=== PATIENT | male | born 1940 | race Caucasian/White ===

== ENCOUNTER 2024-04-07 09:58 | Inpatient (IN) | payer MEDICARE, SELFPAY ==
[2024-04-07] VITALS (12 sets, daily range): BP systolic 114–158; BP diastolic 49–71; BMI 26.3; BMI 25.7
--- NOTE | 2024-04-07 06:52 | ED.GENMED ---
History of Present Illness
General
Chief Complaint: Fall
Source: patient and family (Daughter)
Time Seen by Provider: 04/07/24 06:36
History of Present Illness
History of Present Illness:
84-year-old male has had some ongoing urinary frequency urgency. Has been getting up in the middle of the night. Because of this agitation the gave him a dose of Ativan last night. This was her medication. Patient then got up to go to the
bathroom and either fell or passed out on the floor. Complaining of some mild headache and mild right shoulder pain. Does not think he passed out. No fever chills or infectious symptoms. No chest pain shortness of breath. No thinners.
Past History
Past History
ED Past Medical History: GERD, HTN and Hypercholesterolemia
ED Past Surgical History: Other (Vein stripping. Hernia.)
Review of Systems
Review of Systems
All Other Systems: Not applicable
Constitutional: Denies fever or chills
Respiratory: Reports no symptoms
Cardiac: Reports no symptoms
ABD/GI: Reports no symptoms
Phy Exam
Physical Exam
Physical Exam:
TRAUMA EXAM:
VITAL SIGNS: Vital signs reviewed, cooperative
DISTRESS: No active disease
EYES: Pupils reactive, no orbital trauma
NOSE: No deformity or epistaxis
FACE AND SCALP: No scalp or facial trauma, external canals no blood
NECK: Supple nontender
BACK: Back nontender, pelvis stable to compression
RESPIRATORY: No distress, breath sounds normal, no tender chest wall
CARDIAC: No murmur, pulses equal and strong
ABDOMEN: Soft nontender bowel sounds normal
SKIN: Skin intact no bleeding, color normal
EXTREMITIES: Very minimal tenderness to the right shoulder. No clavicle tenderness. No deformity. No humerus tenderness. Good distal pulses and color. Able to abduct.
NEUROLOGICAL: Alert, oriented, no motor deficits
PSYCH: Mood affect normal
Course
Orders/Labs/Results
Orders:
Orders
04/07/24 06:33
CT Head W/o Iv Contrast Urgent
Comment:
Reason For Exam: Fall possible head injury
Cardiac Monitoring- Treatment ONCE
IV Insert/Care/Rem.- Treatment PRN
CR Shoulder, Trauma - Right Urgent
Reason For Exam: Fall/shoulder pain
04/07/24 06:[address] Non Medication Order As Directed
Physician Order: post void residual
Above order entered?: Yes
04/07/24 06:38
Basic Metabolic Panel Urgent
Complete Blood Count/With Diff Urgent
04/07/24 08:12
Urinalysis Reflex To Culture Urgent
Date Specimen was Collected: 04/07/24
Time Specimen was Collected: 08:07
Urine Microscopic Reflex Cult Urgent
Urine Culture Urgent
TD Source: U
Specimen Description:
Date Specimen was Collected: 04/07/24
Time Specimen was Collected: 08:07
04/07/24 09:18
Cefepime HCl [Maxipime] 2,000 mg IV NOW STA
04/07/24 09:29
Admit/Transfer Patient As Directed
Co-Sign Provider:
Level of Care: Inpatient admission
Assign to:: Medical/Surgical
Physician / Group: Hospitalist
Diagnosis: Fall
Reason for Hospitalization: .
Expected length of stay greater than two midnights?: Yes
ELOS- Estimated Length of Stay in days: 3
I certify the patient meets the requirements for IP care: Yes
04/07/24 09:30
PRN Pain Medication Management As Directed
May give lesser potent ordered pain med per pt: Yes
preference::
Protocol:: Medication orders for pain may be administered in a
manner that supports deferring to patient preference
when the pt is:
- Requesting an ordered lesser potent pain medication.
Least to most potent pain medications are defined
as: acetaminophen < NSAID < tramadol < opioids
(morphine, oxycodone, hydromorphone).
- Requesting a lesser dose of the same medication IF
ORDERED.
- Requesting a less intrusive route of administration
if both routes are prescribed by the provider (PO <
IV).
04/07/24 10:35
Blood Culture Q30M
TD Source: Blood/Venous
Specimen Description:
04/07/24 10:36
Blood Culture Q30M
TD Source: Blood/Venous
Specimen Description:
Abnormal Lab Results
04/07/24 04/07/24
06:38 08:12
WBC 19.4 H 10^3/uL
(4.8-10.8)
RBC 3.80 L 10^6/uL
(4.70-6.10)
Hgb 11.6 L g/dL
(13.0-18.0)
Hct 33.5 L %
(39.0-52.0)
Abs Immat Gran (auto) 0.1 H 10^3/uL
(0-0.05)
Absolute Neuts (auto) 16.1 H 10^3/uL
(1.4-6.5)
Absolute Lymphs (auto) 0.7 L 10^3/uL
(1.2-3.4)
Absolute Monos (auto) 2.3 H 10^3/uL
(0.1-0.6)
Neutrophils % 83.1 H %
(42.2-75.2)
Lymphocytes % 3.8 L %
(20.5-51.1)
Monocytes % 11.9 H %
(1.7-9.3)
BUN 23 H mg/dl
(9-20)
Glucose 108 H mg/dl
(70-99)
Calcium 8.3 L mg/dl
(8.4-10.2)
Urine Ketones Trace A
(Negative)
Ur Occult Blood Reflex 2+ A
(Negative)
Leukocyte Esterase Rfl 2+ A
(Negative)
Urine WBC (Reflex) 60-70 A /HPF
(0-5)
Urine Bacteria (Reflex) Few A
(Negative)
04/07/24 06:38
04/07/24 06:38
Vital Signs
Initial and Last Documented VS:
Initial Vital Signs
Temp Pulse Resp BP Pulse Ox
97.7 F 74 16 116/51 100
04/07/24 05:00 04/07/24 05:00 04/07/24 05:00 04/07/24 05:00 04/07/24 05:00
Last Documented Vital Signs
Temp Pulse Resp BP Pulse Ox
97.7 F 93 16 132/62 99
04/07/24 05:00 04/07/24 12:00 04/07/24 05:00 04/07/24 12:00 04/07/24 12:00
MDM/Problems Addressed
Differential Diagnosis Includes:
Highly suspect the patient's primary issue of weakness/fall versus syncope was secondary to the Ativan. We will place him on the ekg monitor tech. Get labs. From a trauma standpoint low suspicion for anything serious but would be somewhat unknown
history as to what happened and complaining of some headache we will CT his head. He has no neck symptoms. No other signs of trauma. Very minimal right shoulder tenderness. Will x-ray the shoulder. He is describing ongoing very symptoms. Will
check renal function and urine postvoid residual.
*Radiology
Radiology exam reviewed: preliminary read by ED provider (Negative x-ray) and radiology read reviewed (Negative CT)
*Pulse Oximetry
Patient hypoxic: no
*Sample Prep Technician Interpretation
Rate: normal
Interpretation: normal
Heart Rate: 88
Rhythm: sinus
*Critical Care Note
Total Time (30-74mins, 75-104mins- exclusive of procedures): Not Applicable
Update Note
Update Note:
Patient with a high white count. Urine positive. Unsure what occurred last night although the benzodiazepine I am sure contributed. Warrants inpatient manage
ED Attending Note
-
Portions of this chart may have been created with voice recognition software.� Occasional wrong word or��sound alike� substitutions may have occurred due to the inherent limitations of voice recognition software.
Discharge Plan
Departure
Patient Disposition: Admit
Date of Disposition: 04/07/24
Time of Disposition: 09:20
Presentation/result/management discussed w/ accepting MD/DO: Hospitalist
Discharge Problem:
UTI/weak, Fall versus syncope, Benzodiazepine ingestion
Interventions
Interventions:
*Risk Screen - Suicide Last Done: 04/07/24 04:55
*General Assessment Last Done: 04/07/24 04:55
*Neglect/Abuse Screening Last Done: 04/07/24 04:55
ED- Fall Risk Assessment Last Done: 04/07/24 06:55
*ED COVID-19 Vaccine History Last Done: 04/07/24 04:55
ED-Musculoskeletal Assessment Last Done: 04/07/24 05:20
ED- Neurological Assessment Last Done: 04/07/24 05:20
ED-Skin Assessment Last Done: 04/07/24 05:20
[2024-04-07 07:01] LABS: % Basophils 0.6 % (0-2); % Eosinophils 0.2 % (0-6); % Immature Granulocytes 0.4 % (0-0.5); % Lymphocytes 3.8 % (20.5-51.1); % Monocytes 11.9 % (1.7-9.3); % Neutrophils 83.1 % (42.2-75.2); Absolute Basophils 0.1 10^3/uL (0-0.2); Absolute Immature Granulocytes 0.1 10^3/uL (0-0.05); Absolute Lymphocytes 0.7 10^3/uL (1.2-3.4); Absolute Monocytes 2.3 10^3/uL (0.1-0.6); Absolute Neutrophils 16.1 10^3/uL (1.4-6.5); Hematocrit 33.5 % (39.0-52.0); Hemoglobin 11.6 g/dL (13.0-18.0); Mean Corp Hgb Conc. 34.6 g/dL (33.0-37.0); Mean Corpuscular Hgb 30.5 pg (27.0-31.0); Mean Corpuscular Volume 88.2 fL (80.0-94.0); Mean Platelet Volume 10.3 fL (7.4-10.4); Nucleated Red Blood Cells % 0 % (-); Platelet Count 210 10^3/uL (130-400); Red Cell Dist. Width 12.8 % (11.5-14.5); White Blood Cell Count 19.4 10^3/uL (4.8-10.8)
[2024-04-07 07:20] LABS: Blood Urea Nitrogen 23 mg/dl (9-20); Calcium 8.3 mg/dl (8.4-10.2); Carbon Dioxide 27 mmol/L (22-30); Chloride 103 mmol/L (98-107); Estimated Creatinine Clearance 50 ml/min; Glucose 108 mg/dl (70-99); Potassium 3.9 mmol/L (3.5-5.1); Sodium 137 mmol/L (135-145); eGFR > 60.00
[2024-04-07 08:38] LABS: Urine Albumin Trace (Neg - Trace); Urine Bilirubin Negative (Negative); Urine Character Very Cloudy (Clear); Urine Color Yellow; Urine Glucose Negative (Negative); Urine Ketone Trace (Negative); Urine Leukocyte 2+ (Negative); Urine Nitrite Negative (Negative); Urine Occult Blood 2+ (Negative); Urine Specific Gravity 1.015 (<1.030); Urine Urobilinogen Negative (Neg - 1+)
[2024-04-07 08:46] LABS: Urine Bacteria Few (Negative); Urine Squamous Cell 0-2 /LPF (Few)
[2024-04-07 08:47] LABS: Urine Red Blood Cell 0-2 /HPF (0-2); Urine White Cell 60-70 /HPF (0-5)
--- NOTE | 2024-04-07 09:29 | HPS.HSE ---
Family Physician
-
Family Physician: Greg Escobar
Chief Complaint
-
Fall at home with urinary frequency
History of Present Illness
84 years old male presented with ongoing urinary frequency in last a few days. He was unable to sleep well last night and his gave him half a milligram dose of Ativan from her medication. Patient was drowsy and he fell to the ground. He did
not have a head trauma. He complained of mild headache. In the ER, head CAT scan showed no acute abnormality. His urine was cloudy with leukocytosis. Patient was diagnosed with urine tract infection.
Medical History
Past Medical History
Past Medical History: Reports Other (GERD, hypertension, hyperlipidemia, prostate disease, diabetes)
Past Surgical History: Reports Other (No recent major surgery)
Social History
Tobacco: Non-smoker
Alcohol: None
Drug: None
Personal:
Living: With Family
Employment: Retired
Family History
Family History: Not pertinent
Allergies / Home Medications
Allergies reflects when Allergies were last updated in [employer].
Home Medications with original date entered in [employer]
Allergy/Medication List:
Allergies
Allergy/AdvReac Type Severity Reaction Status Date / Time
metoprolol [From Toprol XL] AdvReac 'BP drops Verified 04/07/24 04:54
too low'
Home Medications
amlodipine 5 mg tablet (Norvasc) 5 mg PO DAILY 04/07/24
aspirin 81 mg tablet,delayed release 81 mg PO DAILY 04/07/24
glimepiride 2 mg tablet 2 mg PO BID 04/07/24
hydrochlorothiazide 25 mg tablet 25 mg PO DAILY 04/07/24
ibuprofen 400 mg tablet 400 mg PO DAILYPRN PRN mild pain 04/07/24
latanoprost 0.005 % eye drops 1 drp BOTH EYES HS 04/07/24
lisinopril 20 mg tablet 20 mg PO QPM 04/07/24
omeprazole 40 mg capsule,delayed release 40 mg PO DAILY 04/07/24
simvastatin 10 mg tablet (Zocor) 10 mg PO HS 04/07/24
vitamins A,C,H-bmmd-nwhnnr 2,148 mcg-113 mg-45 mg-17.4 mg tablet (PreserVision AREDS) 1 tab PO BID 04/07/24
Review of Systems
-
History Source: Patient
A 12 point ROS was completed and negative except as noted: Yes
Constitutional: Denies Fever or Chills
EENT: Denies Sore Throat
Respiratory: Denies Cough
Cardiac: Denies Chest Pain
Abdomen/GI: Denies Abdominal Pain
: Reports Frequency
Musculoskeletal: Denies Joint Pain or Joint Swelling
Neurological: Denies Headache or Numbness
Endocrine: Denies Temp Intolerance
Hematologic/Lymphatic: Denies Bruising
Psych: Denies Panic Disorder
Physical Exam
Vital Signs
Vital Signs
Temp Pulse Resp BP Pulse Ox
97.7 F 89 16 136/51 99
04/07/24 05:00 04/07/24 09:22 04/07/24 05:00 04/07/24 09:22 04/07/24 09:12
Physical Exam
General: Comfortable and Appears Chronically Ill
HEENT: Moist mucous membranes and Atraumatic
Respiratory: Clear
Cardiac: S1/S2 and Regular Rhythm
GI: Soft, Non Tender and Non Distended
Rectal: No Maroon Stools
Genito-urinary: No costovertebral tender; No Bloody Urine
Musculoskeletal: No Clubbing, No Cyanosis and No Edema
Skin: Warm
Neuro: Oriented and Cranial Nerves Intact; No Slurred Speech
Psych: Calm and Intact Judgment/Insight; No Agitated
Laboratory Results
-
04/07/24 06:38
04/07/24 06:38
Impression/Plan
-
84 years old male presented with weakness and urgency associated with fall at home
#Urinary tract infection
History of chronic urinary frequency/urgency
Admit the patient to the house
Start the patient on IV antibiotic
Blood culture and urine cul
Renal ultrasound
Bladder scan protocol
Monitor temperature curve and white cell count
# History of fall
Reportedly, patient is independent at home and still drives. Will consult PT/OT. Head CT scan no acute findings
Patient denies confusion
#History of BPH, will continue Flomax that was given
By his a primary care doctor
#Hypertension, primary, continue lisinopril and home medication. Will monitor blood pressure.
#Diabetes, continue with diabetic diet. Add insulin sign scale and continue glimepiride
#GERD, continue PPI
# Patient is new to our system, will reach out to primary care doctor office to get medical records
#CODE STATUS, discussed with patient, patient is full code
Total time spent to see the patient, examine the patient, review data and lab results, discuss the treatment plan with patient, ER doctor, nursing staff around 75 minutes
--- NOTE | 2024-04-07 09:36 | PHANOTE ---
med rec note- patient spouse also gave him 1/2 of lorazepam on 04/06/24
[2024-04-07] MEDS: MAXIPIME 2000 MG IV (10:32)
[2024-04-07] MEDS: NOVOLOG FLEXPEN-MODERATE RESISTANCE SC (15:42)
[2024-04-07] MEDS: TYLENOL 1000 MG PO (16:11)
[2024-04-07] MEDS: Pyridium 100 MG PO (16:11)
[2024-04-07] MEDS: AMARYL 2 MG PO (16:11)
--- NOTE | 2024-04-07 16:31 | PTCARENOTE ---
Pt admitted to rm 336-2 from ED. Ambulated to bed using walker and stand by assist. Frequent urination continues, pt c/o pain/discomfort with urination. PVR 260. Temp 100.1. TT to hospitalist - ordered pyridium, straight cath x 1, tylenol for fever.
Straight cath for 275ml cloudy yellow urine, reported relief. Patient and daughter updated on POC. Verbalized understanding of all instructions. Oriented to room and call button explained. Pt Ox3, aware of surroundings. Bed alarm in place.
[2024-04-07 17:39] LABS: Glucose - Point of Care 260 mg/dl (70-99)
[2024-04-07] MEDS: ZESTRIL 20 MG PO (18:07)
[2024-04-07] MEDS: NOVOLOG FLEXPEN-MODERATE RESISTANCE 5 UNITS SC (18:08)
[2024-04-07] MEDS: STERILE WATER FOR INJECTION 10 ML IV (21:13)
[2024-04-07] MEDS: HEPARIN 5000 UNITS SC (21:13)
[2024-04-07] MEDS: MAXIPIME 1000 MG IV (21:13)
[2024-04-07 21:33] LABS: Glucose - Point of Care 121 mg/dl (70-99)
[2024-04-08 05:35] LABS: Hematocrit 32.5 % (39.0-52.0); Hemoglobin 11.2 g/dL (13.0-18.0); Mean Corp Hgb Conc. 34.5 g/dL (33.0-37.0); Mean Corpuscular Hgb 30.2 pg (27.0-31.0); Mean Corpuscular Volume 87.6 fL (80.0-94.0); Mean Platelet Volume 10.2 fL (7.4-10.4); Platelet Count 209 10^3/uL (130-400); Red Blood Cell Count 3.71 10^6/uL (4.70-6.10); Red Cell Dist. Width 12.8 % (11.5-14.5); White Blood Cell Count 25.4 10^3/uL (4.8-10.8)
[2024-04-08 06:00] LABS: Blood Urea Nitrogen 19 mg/dl (9-20); Calcium 8.2 mg/dl (8.4-10.2); Carbon Dioxide 28 mmol/L (22-30); Chloride 101 mmol/L (98-107); Estimated Creatinine Clearance 55 ml/min; Glucose 85 mg/dl (70-99); Potassium 3.6 mmol/L (3.5-5.1); Sodium 135 mmol/L (135-145); eGFR > 60.00
[2024-04-08 07:27] VITALS: BP 124/57
[2024-04-08 07:39] LABS: Glucose - Point of Care 79 mg/dl (70-99)
[2024-04-08] MEDS: NOVOLOG FLEXPEN-MODERATE RESISTANCE SC ×3 (07:41→16:39)
[2024-04-08] MEDS: AMARYL 2 MG PO ×2 (07:52→17:43)
[2024-04-08] MEDS: HEPARIN 5000 UNITS SC ×2 (07:52→20:10)
[2024-04-08] MEDS: ORETIC 25 MG PO (07:56)
[2024-04-08] MEDS: PROTONIX 40 MG PO (07:56)
[2024-04-08] MEDS: FLOMAX 0.4 MG PO (07:56)
[2024-04-08] MEDS: ASPIR LOW (ENTERIC COATED) 81 MG PO (07:56)
[2024-04-08] MEDS: TYLENOL 1000 MG PO ×2 (07:58→20:10)
[2024-04-08 08:20] LABS: Glycohemoglobin (HgbA1c) 6.7 % (4.0-5.6)
[2024-04-08 08:45] VITALS: BP 130/63; PULSE 82; O2SAT 95
--- NOTE | 2024-04-08 09:03 | W.PN.HOSP.TC ---
Today's Communication/Plan
-
Not improving
Will do CT Urogram
Babin and IVF for now
Increase dose of cefepime, consulted ID
Assessment / Plan
Assessment / Plan
Physical Exam
General: Comfortable and Appears Chronically Ill
HEENT: Moist mucous membranes and Atraumatic
Respiratory: Clear
Cardiac: S1/S2 and Regular Rhythm
GI: Soft, Non Tender and Non Distended
Rectal: No Maroon Stools
Genito-urinary: No costovertebral tender; No Bloody Urine
Musculoskeletal: No Clubbing, No Cyanosis and No Edema
Skin: Warm
Neuro: Oriented and Cranial Nerves Intact; No Slurred Speech
Psych: Calm and Intact Judgment/Insight; No Agitated
84 years old male presented with weakness and urgency associated with fall at home
#Urinary tract infection
He meets criteria of Sepsis that was POA with fever, leukocytosis, UTI and Tachycardia
History of chronic urinary frequency/urgency in last 6 months that got worse in last week
Bladder scan c/w around 270 cc urine unable to void, will do Babin and IVF to drain infected urine out since his temp and WBC not improving
Will do CT urogram with no contrast, Renal US showed no hydronephrosis
Follow with blood culture and urine cul
Monitor temperature curve and white cell count
Will increase Cefepime dose to 2 gm BID for now. No hx of previous UTI per family.
Consulted ID, appreciate input
# History of fall
Reportedly, patient is independent at home and still drives. Consulted PT/OT. Head CT scan no acute findings
Patient denies confusion
#History of urinary frequency , will continue Flomax that was given by his a primary care doctor
Eventual urology follow up. I talked to urologist self contained behavior unit teacher, recommended OP follow for now.
#Hypertension, primary, continue lisinopril and home medication. Will monitor blood pressure.
#Diabetes, continue with diabetic diet. Added insulin sign scale and continue glimepiride
#GERD, continue PPI
#CODE STATUS, discussed with patient, patient is full code
Total time spent to see the patient, examine the patient, review data and lab results, discuss the treatment plan with patient, consultants, daughter of pt, nursing staff around 63 minutes
Anticipated Discharge: > 48 hours
Subjective/Interval History
-
Date of Service: April 08, 2024
He feels dysuria
Mild fever this morning
No abd pain or flank pain
No chest pain
Objective Data
-
Labs:
Laboratory Results
04/08/24
05:10
WBC 25.4 H
Hgb 11.2 L
Hct 32.5 L
Plt Count 209
Sodium 135
Potassium 3.6
Chloride 101
Carbon Dioxide 28
BUN 19
Creatinine 1.0
Glucose 85
Calcium 8.2 L
Vital Signs:
Vital Signs
Temp Pulse Resp BP Pulse Ox
100.4 F H 83 16 124/57 92
04/08/24 07:27 04/08/24 07:56 04/08/24 07:27 04/08/24 07:56 04/08/24 07:27
I&O
04/07/24 04/08/24 04/09/24
06:59 06:59 06:59
Intake Total 600 / 600
Output Total 600 / 600
Balance 0 / 0
[2024-04-08 09:51] VITALS: BP 130/63; PULSE 82; O2SAT 95
[2024-04-08] MEDS: NSS 1000 IV ×2 (10:28→20:10)
[2024-04-08] MEDS: STERILE WATER FOR INJECTION 10 ML IV ×2 (10:33→22:47)
[2024-04-08] MEDS: FLUSH (NSS) 2 FLUSH IV (10:33)
[2024-04-08] MEDS: MAXIPIME 2000 MG IV ×2 (10:33→22:47)
[2024-04-08] MEDS: STERILE WATER FOR INJECTION IV (10:38)
[2024-04-08 11:23] LABS: Glucose - Point of Care 99 mg/dl (70-99)
--- NOTE | 2024-04-08 14:46 | CON.ID ---
Consultation
-
Date/Time Consultation Requested: 04/08/2024 0858
Date/Time Consultation Performed: 04/08/2024 1440
Requesting Provider: Dr. Ricardo
Performing Provider: Dr. Nance
Reason for Consultation: Leukocytosis; complicated urinary tract infection
Chief Complaint / Past History
History of Present Illness
Ilia Mckeon is an 84-year-old man being evaluated at the request of Dr. Ricardo in regards to leukocytosis and suspected urinary tract infection. History is obtained from chart review, along with patient interview. Additional history was obtained
from the patient's daughter who was present at the bedside.
The patient reports a history of urinary tract infection approximately 6 months ago. Since then he has been followed and managed by his PCP, but 2 nights ago he developed significant urgency but an inability to urinate. At least on one of the
trips to the bathroom he sustained a fall. He presented to the emergency room yesterday morning. Since then, he continued to have an inability to urinate and a Babin catheter was placed. Urinalysis revealed significant pyuria, and the patient has
been placed on empiric antibiotics.
Past History
Additional Past Medical History:
GERD
HTN
Dyslipidemia
DM type 2
Additional Past Surgical History:
Hernia repair
Allergy History:
metoprolol [From Toprol XL] Allergy (Verified 04/07/24 15:58)
'BP drops too low'
Medications Reviewed: Yes
Current Antibiotics:
Cefepime 2 g IV every 12 hours
Social History
Tobacco: Non-Smoker
Alcohol: None
Drug: None
Personal:
Living: With Family
Employment: Employed
Family History
Family History: Not Pertinent
Review of Systems
Vital Signs
Temp Pulse Resp BP Pulse Ox
100.4 F H 83 16 124/57 92
04/08/24 07:27 04/08/24 07:56 04/08/24 07:27 04/08/24 07:56 04/08/24 07:27
Physical Exam
Physical Exam
Constitutional: No Acute Distress, Comfortable and Non-toxic
Eyes: No Conjunctival Hemorrhage and Sclera Anicteric
Oral: No Thrush and No Ulcers
Cardiovascular: Regular Rate and S1/S2; Negative S3/S4
Pulmonary: Clear; Negative Wheezes, Rales or Rhonchi
Gastrointestinal: Soft, Non Tender, Non Distended, Normal Bowel Sounds and Other (Umbilical hernia present.)
Genito-Urinary: Babin and Clear Urine; Negative Turbid Urine
Extremities: Negative Edema, Cyanosis or Erythema
Neurological: Awake and Alert
Psychological: Calm
.
Lab / Diagnostic Study Results
04/08/24 05:10
04/08/24 05:10
Abs Immat Gran (auto) 0.1 10^3/uL (0-0.05) H 04/07/24 06:38
Absolute Neuts (auto) 16.1 10^3/uL (1.4-6.5) H 04/07/24 06:38
Absolute Lymphs (auto) 0.7 10^3/uL (1.2-3.4) L 04/07/24 06:38
Absolute Monos (auto) 2.3 10^3/uL (0.1-0.6) H 04/07/24 06:38
Absolute Basos (auto) 0.1 10^3/uL (0-0.2) 04/07/24 06:38
Immature Gran % 0.4 % (0-0.5) 04/07/24 06:38
Neutrophils % 83.1 % (42.2-75.2) H 04/07/24 06:38
Lymphocytes % 3.8 % (20.5-51.1) L 04/07/24 06:38
Monocytes % 11.9 % (1.7-9.3) H 04/07/24 06:38
Eosinophils % 0.2 % (0-6) 04/07/24 06:38
Basophils % 0.6 % (0-2) 04/07/24 06:38
Ur Squamous Epith Cells 0-2 /LPF (Few) 04/07/24 08:12
Microbiology Results
Micro:
04/07/24 10:35 Blood Culture - Preliminary
Blood/Venous No Growth in 24 hours- Final report to follow
04/07/24 10:36 Blood Culture - Preliminary
Blood/Venous No Growth in 24 hours- Final report to follow
04/07/24 08:12 Urine Culture - Preliminary
Urine Staphylococcus species
Imaging:
04/08/2024 CT abdomen/pelvis without contrast: No obstructing renal or ureteral calculi. No hydronephrosis or hydroureter. Cholelithiasis is noted. Urinary bladder is normal. No abnormal lymphadenopathy. Please see full dictation for additional
detail. Film personally viewed
04/07/2024 Renal ultrasound:Essentially unremarkable renal ultrasound, as detailed in body of dictation.
Assessment / Plan
Suspected complicated urinary tract infection
Leukocytosis
Urinary retention requiring Babin placement
GERD
HTN
Dyslipidemia
Recommendations:
Continue cefepime for today.
Urine cultures reveal staph species. Will begin empiric vancomycin pending further culture data.
Monitor white count & temperature curve.
--- NOTE | 2024-04-08 15:09 | CM ---
CM met with pt, adinar/Nadiya and aj Mechelle bedside
Pt resides with his spouse in a [place] community, [address] with 4 [address]
Pt has a 1st floor set up, spouse unable to provide care to patient
Pt has local family who are involved in his care
Pt is indep with ambulations, no ADs, does furniture surf at times
Denies financial insecurities
PCP- Greg Escobar
Rx- Cherrie Hamilton
VN recs by therapy
Referral to [facility] per pt request
Pt will need WW issued on dc
Discharge Disposition - home with [facility], will need WW issued on dc
[2024-04-08 15:17] VITALS: BP 115/53
--- NOTE | 2024-04-08 15:45 | VNURNOTE ---
Home health liaison met with patient, daughter and spouse to discuss VN services, visit scheduling/frequency, homebound status and pet policy. Patient understands home visits will be 1-2 times a week to assess and teach medical management.
Patient aware a visiting nurse will contact them for start of care within 1-2 days after discharge from . Patient and family do not feel patient needs homecare and would like to think about it. Patient would like to see if he is definitely going
home with a catheter first. VN brochure given to patient. Home health liaison to follow up
--- NOTE | 2024-04-08 16:15 | PHA.VAN.IN ---
Assessment
- Assessment
Renal Function: Appears similar to baseline
Maximum Temperature: 100.4
Minimum Temperature: 97.7
Concomitant Antimicrobials: CEFEPIME 2000MG Q12H
AUC Dosing Plan
- Dosing Variables
Dosing Weight (kg): 81.3
Dosing CrCl (ml/min): 55
Vd coefficient (L/kg): 0.7
- Empiric Dosing
Initial / Loading Dose: 2000mg
Maintenance Regimen: 1250mg Q24H
Estimated AUC (mcg*h/mL): 455
Estimated Peak (mcg*h/mL): 31.4
Estimated Trough (mcg/ml): 10.2
Estimated Half Life (H): 13.8
- Monitoring
No levels ordered at this time: Consider level in next few days
Pharmacokinetics Vancomycin I
- -
Patient Age: 84
Patient Sex: Male
Vancomycin Day #: 1
Indication: Genito-Urinary Tract
Requesting Provider: Basilia MORIN
Height / Weight:
Height 5 ft 10 in
Actual Weight 81.329 kg
Pertinent Past Medical History: DIABETES
- Vital Signs / Lab Results
Temp Pulse Resp BP Pulse Ox
98.9 F 80 18 115/53 96
04/08/24 15:17 04/08/24 15:17 04/08/24 15:17 04/08/24 15:17 04/08/24 15:17
Lab Results - Hematology
04/07/24 04/08/24
06:38 05:10
WBC 19.4 H 25.4 H
Lab Results - Chemistry
04/07/24 04/08/24
06:38 05:10
BUN 23 H 19
Creatinine 1.1 1.0
Estimated Creat Clear 50 55
Lab Results - Urine
04/07/24
08:12
Urine Nitrite (Reflex) Negative
Leukocyte Esterase Rfl 2+ A
Urine WBC (Reflex) 60-70 A
Ur Squamous Epith Cells 0-2
Urine Bacteria (Reflex) Few A
Microbiology Results
04/07/24 10:35 Blood Culture - Preliminary
Blood/Venous No Growth in 24 hours- Final report to follow
04/07/24 10:36 Blood Culture - Preliminary
Blood/Venous No Growth in 24 hours- Final report to follow
04/07/24 08:12 Urine Culture - Preliminary
Urine Staphylococcus species
[2024-04-08] MEDS: VANCOCIN 540 MG IV (16:22)
[2024-04-08 16:37] LABS: Glucose - Point of Care 149 mg/dl (70-99)
[2024-04-08] MEDS: ZESTRIL 20 MG PO (17:43)
[2024-04-08 19:00] VITALS: BP 131/60
[2024-04-08 21:16] LABS: Glucose - Point of Care 94 mg/dl (70-99)
[2024-04-08 23:00] VITALS: BP 118/51
[2024-04-09] MEDS: NSS 1000 IV ×2 (03:40→15:35)
[2024-04-09] MEDS: LMX 4 1 APPLIC TOPICAL (04:21)
[2024-04-09 05:42] LABS: % Basophils 0.6 % (0-2); % Eosinophils 0.6 % (0-6); % Immature Granulocytes 0.8 % (0-0.5); % Lymphocytes 5.1 % (20.5-51.1); % Monocytes 10.4 % (1.7-9.3); % Neutrophils 82.5 % (42.2-75.2); Absolute Basophils 0.2 10^3/uL (0-0.2); Absolute Eosinophils 0.1 10^3/uL (0-0.7); Absolute Immature Granulocytes 0.2 10^3/uL (0-0.05); Absolute Lymphocytes 1.2 10^3/uL (1.2-3.4); Absolute Monocytes 2.4 10^3/uL (0.1-0.6); Absolute Neutrophils 19.4 10^3/uL (1.4-6.5); Hemoglobin 11.9 g/dL (13.0-18.0); Mean Corpuscular Hgb 29.9 pg (27.0-31.0); Mean Corpuscular Volume 87.9 fL (80.0-94.0); Mean Platelet Volume 10.4 fL (7.4-10.4); Nucleated Red Blood Cells % 0 % (-); Platelet Count 269 10^3/uL (130-400); Red Blood Cell Count 3.98 10^6/uL (4.70-6.10); Red Cell Dist. Width 12.9 % (11.5-14.5); White Blood Cell Count 23.5 10^3/uL (4.8-10.8)
[2024-04-09] MEDS: VANCOCIN 275 MG IV (05:44)
[2024-04-09 06:04] LABS: Blood Urea Nitrogen 22 mg/dl (9-20); Calcium 7.9 mg/dl (8.4-10.2); Carbon Dioxide 22 mmol/L (22-30); Chloride 104 mmol/L (98-107); Estimated Creatinine Clearance 50 ml/min; Glucose 58 mg/dl (70-99); Potassium 3.2 mmol/L (3.5-5.1); Sodium 138 mmol/L (135-145); eGFR > 60.00
[2024-04-09] MEDS: KCL 40 MEQ PO (06:37)
[2024-04-09 07:55] VITALS: BP 168/72
[2024-04-09 08:35] LABS: Glucose - Point of Care 109 mg/dl (70-99)
[2024-04-09] MEDS: NOVOLOG FLEXPEN-MODERATE RESISTANCE SC ×2 (08:52→13:13)
[2024-04-09] MEDS: ORETIC 25 MG PO (08:53)
[2024-04-09] MEDS: ASPIR LOW (ENTERIC COATED) 81 MG PO (08:53)
[2024-04-09] MEDS: PROTONIX 40 MG PO (08:53)
[2024-04-09] MEDS: HEPARIN 5000 UNITS SC ×2 (08:53→20:41)
[2024-04-09] MEDS: AMARYL 2 MG PO ×2 (08:53→17:24)
[2024-04-09] MEDS: FLOMAX 0.4 MG PO (08:53)
--- NOTE | 2024-04-09 09:35 | PHA.VAN.FU ---
Vancomycin Assessment / Plan
- Assessment
Renal Function: Stable
WBC's are: Stable
In the past 24 hrs, patient has been: Afebrile
Concomitant Antimicrobials: Cefepime
- Dosing Plan
Continue: Vanc 1250mg IV q24
- Follow Up
Pharmacy will continue to follow.
Vancomycin Follow UP
- -
Patient Age: 84
Patient Sex: Male
Vancomycin Day #: 2
Indication: Genito-Urinary Tract
Requesting Provider: Basilia MORIN
Height / Weight:
Height 5 ft 10 in
Actual Weight 81.329 kg
Pertinent Past Medical History: DIABETES
- Vital Signs / Lab Results
Temp Pulse Resp BP Pulse Ox
97.8 F 80 14 168/72 96
04/09/24 07:55 04/09/24 08:53 04/09/24 07:55 04/09/24 08:53 04/09/24 07:55
Lab Results - Hematology
04/07/24 04/08/24 04/09/24
06:38 05:10 05:22
WBC 19.4 H 25.4 H 23.5 H
Lab Results - Chemistry
04/07/24 04/08/24 04/09/24
06:38 05:10 05:22
BUN 23 H 19 22 H
Creatinine 1.1 1.0 1.1
Estimated Creat Clear 50 55 50
Lab Results - Urine
04/07/24
08:12
Urine Nitrite (Reflex) Negative
Leukocyte Esterase Rfl 2+ A
Ur Squamous Epith Cells 0-2
Microbiology Results
04/07/24 10:35 Blood Culture - Preliminary
Blood/Venous No Growth in 24 hours- Final report to follow
04/07/24 10:36 Blood Culture - Preliminary
Blood/Venous No Growth in 24 hours- Final report to follow
04/07/24 08:12 Urine Culture - Preliminary
Urine Staphylococcus species
--- NOTE | 2024-04-09 09:43 | W.PN.HOSP.TC ---
Addendum entered and electronically signed by David Ricardo MD 04/09/24 11:34:
Addendum
Hypokalemia, replace
Original Note:
Today's Communication/Plan
-
c/w IV Abx
Voiding trial.
Assessment / Plan
Assessment / Plan
Physical Exam
General: Comfortable and Appears Chronically Ill
HEENT: Moist mucous membranes and Atraumatic
Respiratory: Clear
Cardiac: S1/S2 and Regular Rhythm
GI: Soft, Non Tender and Non Distended
Rectal: No Maroon Stools
Genito-urinary: No costovertebral tender; No Bloody Urine
Musculoskeletal: No Clubbing, No Cyanosis and No Edema
Skin: Warm
Neuro: Oriented and Cranial Nerves Intact; No Slurred Speech
Psych: Calm and Intact Judgment/Insight; No Agitated
84 years old male presented with weakness and urgency associated with fall at home
#Urinary tract infection
He met criteria of Sepsis that was POA with fever, leukocytosis, UTI and Tachycardia
He feels better
Good clinical response. No recurrent fever
History of chronic urinary frequency/urgency in last 6 months that got worse in last week
Bladder scan c/w around 270 cc urine unable to void, d/w urologist interrelated special education teacher, Babin and IVF to drain infected urine out since his temp and WBC not improving
CT urogram with no contrast showed no abscess/ stone/ hydronephrosis. Renal US showed no hydronephrosis
Negative blood culture
Urine culture showing staph.
Monitor temperature curve and white cell count
Cefepime dose to 2 gm BID for now, added vancomycin IV. No hx of previous UTI per family.
Consulted ID, appreciate input
# leukocytosis
WBC is lower but still at 23
Patient denies hx of blood disease. We do not have records.
# History of fall
Reportedly, patient is independent at home and still drives. Consulted PT/OT. Head CT scan no acute findings
Patient denies confusion
#History of urinary frequency , continue Flomax that was given by his a primary care doctor
Eventual urology follow up. I talked to urologist interrelated special education teacher, recommended OP follow for now.
#Hypertension, primary, continue lisinopril and home medication. Monitor blood pressure.
#Diabetes, continue with diabetic diet. Added insulin sign scale and continue glimepiride
#GERD, continue PPI
#CODE STATUS, discussed with patient, patient is full code
Total time spent to see the patient, examine the patient, review data and lab results, discuss the treatment plan with patient, consultants, daughter of pt, nursing staff around 63 minutes
Anticipated Discharge: 24 - 48 hours
Subjective/Interval History
-
Date of Service: April 09, 2024
He feels better
No chest pain
Urine catheter bothers him at times
No fever or chills.
Objective Data
-
Labs:
Laboratory Results
04/09/24
05:22
WBC 23.5 H
Hgb 11.9 L
Hct 35.0 L
Plt Count 269 D
Sodium 138
Potassium 3.2 L
Chloride 104
Carbon Dioxide 22
BUN 22 H
Creatinine 1.1
Glucose 58 L
Calcium 7.9 L
Vital Signs:
Vital Signs
Temp Pulse Resp BP Pulse Ox
97.8 F 80 14 168/72 96
04/09/24 07:55 04/09/24 08:53 04/09/24 07:55 04/09/24 08:53 04/09/24 07:55
I&O
04/08/24 04/09/24 04/10/24
06:59 06:59 06:59
Intake Total 600 / 600 480 / 480
Output Total 600 / 600 400 / 400
Balance 0 / 0 80 / 80
[2024-04-09] MEDS: STERILE WATER FOR INJECTION 10 ML IV ×2 (11:44→22:44)
[2024-04-09] MEDS: MAXIPIME 2000 MG IV ×2 (11:44→22:44)
[2024-04-09 11:54] LABS: Glucose - Point of Care 176 mg/dl (70-99)
[2024-04-09 15:30] VITALS: BP 131/59
[2024-04-09 17:21] LABS: Glucose - Point of Care 214 mg/dl (70-99)
[2024-04-09] MEDS: NOVOLOG FLEXPEN-MODERATE RESISTANCE 3 UNITS SC (17:23)
[2024-04-09] MEDS: ZESTRIL 20 MG PO (17:24)
[2024-04-09 19:15] VITALS: BP 123/54
[2024-04-09 22:50] LABS: Glucose - Point of Care 163 mg/dl (70-99)
[2024-04-09 23:10] VITALS: BP 105/40
[2024-04-10] MEDS: VANCOCIN 275 MG IV (06:22)
[2024-04-10 07:30] VITALS: BP 139/65
[2024-04-10 08:11] LABS: Glucose - Point of Care 62 mg/dl (70-99)
[2024-04-10 08:30] LABS: Glucose - Point of Care 71 mg/dl (70-99)
[2024-04-10] MEDS: AMARYL PO (09:11)
[2024-04-10] MEDS: NOVOLOG FLEXPEN-MODERATE RESISTANCE SC ×3 (09:11→18:02)
[2024-04-10] MEDS: HEPARIN 5000 UNITS SC ×2 (09:25→19:54)
[2024-04-10] MEDS: ASPIR LOW (ENTERIC COATED) 81 MG PO (09:26)
[2024-04-10] MEDS: ORETIC 25 MG PO (09:26)
[2024-04-10] MEDS: FLOMAX 0.4 MG PO (09:26)
[2024-04-10] MEDS: PROTONIX 40 MG PO (09:26)
[2024-04-10 09:27] LABS: Hematocrit 31.2 % (39.0-52.0); Hemoglobin 10.7 g/dL (13.0-18.0); Mean Corp Hgb Conc. 34.3 g/dL (33.0-37.0); Mean Corpuscular Hgb 30.3 pg (27.0-31.0); Mean Corpuscular Volume 88.4 fL (80.0-94.0); Mean Platelet Volume 10.9 fL (7.4-10.4); Platelet Count 276 10^3/uL (130-400); Red Blood Cell Count 3.53 10^6/uL (4.70-6.10); Red Cell Dist. Width 13.1 % (11.5-14.5); White Blood Cell Count 12.6 10^3/uL (4.8-10.8)
--- NOTE | 2024-04-10 09:59 | W.PN.HOSP.TC ---
Today's Communication/Plan
-
Voiding trial today
f/w ID recommendations
PT/OT
Goal is dc in am
Assessment / Plan
Assessment / Plan
Physical Exam
General: Comfortable and looks better overall
HEENT: Moist mucous membranes and Atraumatic
Respiratory: Clear
Cardiac: S1/S2 and Regular Rhythm
GI: Soft, Non Tender and Non Distended
Rectal: No Maroon Stools
Genito-urinary: No costovertebral tender; No Bloody Urine
Musculoskeletal: No Clubbing, No Cyanosis and No Edema
Skin: Warm
Neuro: Oriented and Cranial Nerves Intact; No Slurred Speech
Psych: Calm and Intact Judgment/Insight; No Agitated
84 years old male presented with weakness and urgency associated with fall at home
#Urinary tract infection
He met criteria of Sepsis that was POA with fever, leukocytosis, UTI and Tachycardia
He feels better
Good clinical response. No recurrent fever
History of chronic urinary frequency/urgency in last 6 months that got worse in last week
Bladder scan c/w around 270 cc urine unable to void, d/w urologist rehabilitation physician, Babin and IVF to drain infected urine out since his temp and WBC not improving
CT urogram with no contrast showed no abscess/ stone/ hydronephrosis. Renal US showed no hydronephrosis
Negative blood culture
Urine culture showing staph lugdunensis.
Monitored temperature curve and white cell count
Cefepime dose to 2 gm BID for now, added vancomycin IV. No hx of previous UTI per family.
Consulted ID, appreciate input
# leukocytosis
WBC is lower at 12 from peak at 25
Patient denies hx of blood disease. We do not have records.
# History of fall
Reportedly, patient is independent at home and still drives. Consulted PT/OT. Head CT scan no acute findings
Patient denies confusion
#History of urinary frequency , continue Flomax that was given by his a primary care doctor
Eventual urology follow up. I talked to urologist rehabilitation physician, recommended OP follow for now. Will do voiding trial
#Hypertension, primary, continue lisinopril and home medication. Monitor blood pressure.
#Diabetes, continue with diabetic diet. Added insulin sign scale and continue glimepiride
#GERD, continue PPI
#CODE STATUS, discussed with patient, patient is full code
Total time spent to see the patient, examine the patient, review data and lab results, discuss the treatment plan with patient, consultants, daughter of pt, nursing staff around 63 minutes
Anticipated Discharge: Within 24 hours
Subjective/Interval History
-
Date of Service: April 10, 2024
Doing well
Objective Data
-
Labs:
Laboratory Results
04/10/24 04/10/24
08:02 08:03
WBC 12.6 H
Hgb 10.7 L
Hct 31.2 L
Plt Count 276
Sodium Pending
Potassium Pending
Chloride Pending
Carbon Dioxide Pending
BUN Pending
Creatinine Pending
Glucose Pending
Calcium Pending
Vital Signs:
Vital Signs
Temp Pulse Resp BP Pulse Ox
98.9 F 71 16 139/65 96
04/10/24 07:30 04/10/24 07:30 04/10/24 07:30 04/10/24 07:30 04/10/24 07:30
I&O
04/09/24 04/10/24 04/11/24
06:59 06:59 06:59
Intake Total 480 / 480 1945 / 1945
Output Total 400 / 400 1400 / 1400
Balance 80 / 80 545 / 545
[2024-04-10 10:07] LABS: Blood Urea Nitrogen 20 mg/dl (9-20); Calcium 7.7 mg/dl (8.4-10.2); Carbon Dioxide 25 mmol/L (22-30); Chloride 105 mmol/L (98-107); Estimated Creatinine Clearance 50 ml/min; Glucose 54 mg/dl (70-99); Potassium 3.7 mmol/L (3.5-5.1); Sodium 138 mmol/L (135-145); eGFR > 60.00
--- NOTE | 2024-04-10 10:36 | PHA.VAN.FU ---
Vancomycin Assessment / Plan
- Assessment
Renal Function: Stable
WBC's are: Trending Down (23.5->12.6)
In the past 24 hrs, patient has been: Afebrile
Concomitant Antimicrobials: Cefepime 2gm q12h
- Dosing Plan
Continue: vancomycin 1250 mg q24h - first dose 04/09 0600 after 2g LD 04/08 162
- Monitoring Plan
Peak Level: 04/11 0900 - after 4th dose
Trough Level: 04/12 0530
- Follow Up
Pharmacy will continue to follow.
Vancomycin Follow UP
- -
Patient Age: 84
Patient Sex: Male
Vancomycin Day #: 3
Indication: Genito-Urinary Tract
Requesting Provider: Basilia MORIN
Height / Weight:
Height 5 ft 10 in
Actual Weight 81.329 kg
Pertinent Past Medical History: DIABETES
- Vital Signs / Lab Results
Temp Pulse Resp BP Pulse Ox
98.9 F 71 16 139/65 96
04/10/24 07:30 04/10/24 07:30 04/10/24 07:30 04/10/24 07:30 04/10/24 07:30
Lab Results - Hematology
04/08/24 04/09/24 04/10/24
05:10 05:22 08:03
WBC 25.4 H 23.5 H 12.6 H
Lab Results - Chemistry
04/08/24 04/09/24 04/10/24
05:10 05:22 08:02
BUN 19 22 H 20
Creatinine 1.0 1.1 1.1
Estimated Creat Clear 55 50 50
Microbiology Results
04/07/24 08:12 Urine Culture - Final
Urine Staphylococcus lugdunensis
04/07/24 10:36 Blood Culture - Preliminary
Blood/Venous No Growth in 48 hours- Final report to follow
04/07/24 10:35 Blood Culture - Preliminary
Blood/Venous No Growth in 48 hours- Final report to follow
[2024-04-10] MEDS: STERILE WATER FOR INJECTION 10 ML IV (11:50)
[2024-04-10] MEDS: MAXIPIME 2000 MG IV (11:50)
[2024-04-10 12:37] LABS: Glucose - Point of Care 106 mg/dl (70-99)
--- NOTE | 2024-04-10 14:16 | W.PN.ID1 ---
Date of Service
Date of Service: April 10, 2024
Today's Communication
Narrow to cefazolin
Assessment / Plan
Suspected complicated urinary tract infection
Leukocytosis
Urinary retention requiring Babin placement
GERD
HTN
Dyslipidemia
Recommendations:
Cultures with staph lugdunensis.
Narrow antibiotics to cefazolin 2 g IV every 8 hours.
If continued clinical improvement, can transition to oral cephalexin at discharge.
Would complete a total of 10 to 14 days of therapy.
����������������������������������������������������������
Chief Complaint
-: UTI
Subjective / Review of Systems
Review of Systems: No Fever and No Chills
Vital Signs / Physical Exam
Vital Signs
Vital Signs
Temp Pulse Resp BP Pulse Ox
98.9 F 71 16 139/65 96
04/10/24 07:30 04/10/24 07:30 04/10/24 07:30 04/10/24 07:30 04/10/24 07:30
Physical Exam
Constitutional: No Acute Distress, Comfortable and Non-toxic
Eyes: Sclera Anicteric
Cardiovascular: S1/S2; Negative S3/S4
Pulmonary: Non Labored
Gastrointestinal: Soft and Non Tender
Genito-Urinary: Negative Babin
Neurological: Awake and Alert
Psychological: Calm
Objective Data
Lab Data
Lab Results
04/10/24 08:03
04/10/24 08:02
Estimated Creat Clear 50 ml/min 04/10/24 08:02
Most recent labs reviewed.
Micro Results:
04/07/24 10:35 Blood Culture - Preliminary
Blood/Venous No Growth in 72 hours- Final report to follow
04/07/24 10:36 Blood Culture - Preliminary
Blood/Venous No Growth in 72 hours- Final report to follow
04/07/24 08:12 Urine Culture - Final
Urine Staphylococcus lugdunensis
Imaging:
04/08/2024 CT abdomen/pelvis without contrast: No obstructing renal or ureteral calculi. No hydronephrosis or hydroureter. Cholelithiasis is noted. Urinary bladder is normal. No abnormal lymphadenopathy. Please see full dictation for additional
detail. Film personally viewed
04/07/2024 Renal ultrasound:Essentially unremarkable renal ultrasound, as detailed in body of dictation.
[2024-04-10 15:45] VITALS: BP 148/68
[2024-04-10] MEDS: ANCEF 2.5 MG IV ×2 (16:58→23:36)
[2024-04-10] MEDS: ZESTRIL 20 MG PO (17:02)
[2024-04-10] MEDS: AMARYL 1 MG PO (17:02)
[2024-04-10 17:49] LABS: Glucose - Point of Care 112 mg/dl (70-99)
[2024-04-10 21:42] LABS: Glucose - Point of Care 112 mg/dl (70-99)
[2024-04-10 23:32] VITALS: BP 140/70
[2024-04-11 07:26] VITALS: BP 148/76
[2024-04-11 08:24] LABS: Glucose - Point of Care 93 mg/dl (70-99)
[2024-04-11] MEDS: PROTONIX 40 MG PO (08:50)
[2024-04-11] MEDS: ASPIR LOW (ENTERIC COATED) 81 MG PO (08:51)
[2024-04-11] MEDS: AMARYL 1 MG PO (08:51)
[2024-04-11] MEDS: HEPARIN 5000 UNITS SC (08:51)
[2024-04-11] MEDS: NOVOLOG FLEXPEN-MODERATE RESISTANCE SC (08:51)
[2024-04-11] MEDS: ANCEF 2.5 MG IV (08:51)
[2024-04-11] MEDS: FLOMAX 0.4 MG PO (08:51)
[2024-04-11] MEDS: ORETIC 25 MG PO (08:51)
[2024-04-11 09:41] LABS: Vancomycin Peak 12.6 ug/ml (18-26)
--- NOTE | 2024-04-11 09:42 | W.PN.URO.CBU ---
Today's Communication / Plan
-
home when ok [facility] hospitalist no more bladder scans no menard
Assessment / Plan
-
pt at risk for uti with or woithout menard will continue flomax asd finasteride and f/up bph eval at office
Diagnosis
-
Date of Service: April 11, 2024
-
Patient Diagnosis:bph incomopletee bladder emptying 200cc pvr with uti
Post Op Day:
Subjective
-
feeling better
Objective
-
Vital Signs
Temp Pulse Resp BP Pulse Ox
99.2 F 88 17 148/76 95
04/11/24 07:26 04/11/24 07:26 04/11/24 07:26 04/11/24 07:26 04/11/24 07:26
Intake and Output
04/10/24 04/11/24 04/12/24
06:59 06:59 06:59
Intake Total 1945 / 1945 720 / 720
Output Total 1400 / 1400 1825 / 1825
Balance 545 / 545 -1105 / -1105
Intake:
Oral fluids 1320 / 1320 720 / 720
IV fluids (Total) 625 / 625
Output:
Urine, Menard 1400 / 1400 400 / 400
Urine, Voided 1425 / 1425
Laboratory Results
04/10/24 08:02
Review of Systems
-
: Dysuria and Difficulty Voiding
Physical Exam
-
General - well developed, well nourished, no acute distress
Chest - clear bilaterally
Abdomen - soft, non-tender, positive bowel sounds, no CVAT, no incisional pain or distention
Genitalia - normal
Rectal - normal
Skin - warm & dry with no rash
Neuro - AOx3, no motor deficits
Extremities - no clubbing, no cyanosis, no edema
Care Review
Data Reviewed
Discussed with: Hospitalist and Family (daughter jaspal)
CT Scan: Image Pers Reviewed
[2024-04-11 09:59] LABS: Hematocrit 34.5 % (39.0-52.0); Hemoglobin 11.7 g/dL (13.0-18.0); Mean Corp Hgb Conc. 33.9 g/dL (33.0-37.0); Mean Corpuscular Volume 88.5 fL (80.0-94.0); Mean Platelet Volume 10.2 fL (7.4-10.4); Platelet Count 357 10^3/uL (130-400); White Blood Cell Count 12.3 10^3/uL (4.8-10.8)
[2024-04-11 12:03] LABS: Glucose - Point of Care 191 mg/dl (70-99)
--- NOTE | 2024-04-11 12:06 | VNURNOTE ---
Chart reviewed. Per 04/11 urology note, no menard, no more bladder scans. Per previous VN, family not interested in homecare unless pt needs menard at home. No referral placed.
--- NOTE | 2024-04-11 12:11 | W.PN.HOSP.TC ---
Today's Communication/Plan
-
discharge with home health
Assessment / Plan
Assessment / Plan
Physical Exam
General: Comfortable and looks better overall
HEENT: Moist mucous membranes and Atraumatic
Respiratory: Clear
Cardiac: S1/S2 and Regular Rhythm
GI: Soft, Non Tender and Non Distended
Rectal: No Maroon Stools
Genito-urinary: No costovertebral tender; No Bloody Urine, clear urine.
Musculoskeletal: No Clubbing, No Cyanosis and No Edema
Skin: Warm
Neuro: Oriented and Cranial Nerves Intact; No Slurred Speech
Psych: Calm and Intact Judgment/Insight; No Agitated
84 years old male presented with weakness and urgency associated with fall at home
#Urinary tract infection
He met criteria of Sepsis that was POA with fever, leukocytosis, UTI and Tachycardia
He feels better
Good clinical response. No recurrent fever
History of chronic urinary frequency/urgency in last 6 months that got worse in last week
Bladder scan c/w around 200-300 post void despite trial of Babin in hospital ( see below)
CT urogram with no contrast showed no abscess/ stone/ hydronephrosis. Renal US showed no hydronephrosis
Negative blood culture
Urine culture showing staph lugdunensis.
Monitored temperature curve and white cell count
started on Ancef, ok to do Keflex upon dc
Consulted ID, appreciate input
# leukocytosis
WBC is lower at 12 from peak at 25
Patient denies hx of blood disease.
# History of fall
Reportedly, patient is independent at home and still drives. Consulted PT/OT, ok for home health. Head CT scan no acute findings
Patient denies confusion
#History of urinary frequency , continue Flomax that was given by his a primary care doctor
pt and family wanted inpt urology evaluation, d/w Dr Vaughn, saw the pt, started on Finasteride with no Babin for now, f/u in office, keep Flomax
#Hypertension, primary, continue lisinopril and home medication. Monitor blood pressure.
#Diabetes, continue with diabetic diet. Added insulin sign scale and continue glimepiride. He was noted to have low blood sugar in the morning although he did not have symptoms. Glimepiride was reduced to 1 mg in the hospital but he was on
controlled diet. Patient was advised to hold all cut back glimepiride if noticed blood sugar less than 90 at home or he is having symptoms and to follow-up with his a primary care doctor, he verbalized understanding.
#GERD, continue PPI
#CODE STATUS, discussed with patient, patient is full code
Total discharge time spent to see the patient, examine the patient, review data and lab results, discuss the discharge plan with patient, daughter of pt, urologist, nursing staff around 67 minutes
Anticipated Discharge: Today
Subjective/Interval History
-
Date of Service: April 11, 2024
Feels better, seen earlier
wants to go home
would like to see urologist
Objective Data
-
Labs:
Laboratory Results
04/11/24
08:41
WBC 12.3 H
Hgb 11.7 L
Hct 34.5 L
Plt Count 357 D
Vital Signs:
Vital Signs
Temp Pulse Resp BP Pulse Ox
99.2 F 88 17 148/76 95
04/11/24 07:26 04/11/24 07:26 04/11/24 07:26 04/11/24 07:26 04/11/24 07:26
I&O
04/10/24 04/11/24 04/12/24
06:59 06:59 06:59
Intake Total 1945 / 1945 720 / 720
Output Total 1400 / 1400 1825 / 1825
Balance 545 / 545 -1105 / -1105
--- NOTE | 2024-04-11 12:15 | CM ---
Addendum entered by Connie Montenegro 04/11/24 15:44:
Plan: discharge to home today; provided a script for outpatient therapy; PT provided a rolling walker
Addendum entered by Connie Montenegro 04/11/24 13:28:
Patient not homebound. Home Health not an option
PT will reassess if outpatient PT would be beneficial and if he needs a Rolling Walker at discharge
Original Note:
OZZIE spoke with patient's daughter, Samantha, via phone to discuss father's discharge plan. Home Health offered again for VN and PT. Daughter is now agreeable. Referral sent and acknowledge via [employer] Text to [facility] liaison. Liaison will contact
patient's daughter
Plan: Discharge to home with home health services with [facility]; daughter will provide transport home
--- NOTE | 2024-04-11 12:35 | VNURNOTE ---
Addendum:
Rec'ed info from CM that daughter interested in VN.
Home Health Liaison spoke with patient's daughter Samantha. Discussed [facility] nurse/therapy, visits, schedule and homebound status. Per daughter patient plans on resuming driving and working from home. Per daughter pt goes out frequently including
errands and dinner. Explained insurance/ coverage related to homebound status. Patient does not appear to be homebound. Advised [facility] can be ordered by PCP if patient status changes and meets homebound criteria after DC. Daughter verbalized
understanding. CM Connie updated.
[2024-04-11] MEDS: NOVOLOG FLEXPEN-MODERATE RESISTANCE 1 UNITS SC (13:17)
[2024-04-11] MEDS: ANCEF 10 IV (13:17)
--- NOTE | 2024-04-11 13:53 | W.PN.ID1 ---
Date of Service
Date of Service: April 11, 2024
Today's Communication
Sign off
Assessment / Plan
Suspected complicated urinary tract infection
Leukocytosis
Urinary retention requiring Babin placement
-Patient successful with voiding trial. Babin now out.
GERD
HTN
Dyslipidemia
Recommendations:
Urine cultures with staph lugdunensis.
Transition to oral cephalexin, to continue with antibiotics through 04/21/2024
Nothing further to add from a Infectious Diseases standpoint.
Will see again at your request. Call with any questions.
����������������������������������������������������������
Chief Complaint
-: UTI
Subjective / Review of Systems
Patient seen and examined. Babin catheter out and Patient urinating without dysuria.
Review of Systems: No Fever and No Chills
Vital Signs / Physical Exam
Vital Signs
Vital Signs
Temp Pulse Resp BP Pulse Ox
99.2 F 88 17 148/76 95
04/11/24 07:26 04/11/24 07:26 04/11/24 07:26 04/11/24 07:26 04/11/24 07:26
Physical Exam
Constitutional: No Acute Distress, Comfortable and Non-toxic
Eyes: Sclera Anicteric
Cardiovascular: S1/S2; Negative S3/S4
Pulmonary: Non Labored
Gastrointestinal: Soft and Non Tender
Genito-Urinary: Negative Babin
Neurological: Awake and Alert
Psychological: Calm
Objective Data
Lab Data
Lab Results
04/11/24 08:41
04/10/24 08:02
Estimated Creat Clear 50 ml/min 04/10/24 08:02
Most recent labs reviewed.
Micro Results:
04/07/24 10:35 Blood Culture - Preliminary
Blood/Venous No Growth in 4 days- Final report to follow
04/07/24 10:36 Blood Culture - Preliminary
Blood/Venous No Growth in 4 days- Final report to follow
04/07/24 08:12 Urine Culture - Final
Urine Staphylococcus lugdunensis
Imaging:
04/08/2024 CT abdomen/pelvis without contrast: No obstructing renal or ureteral calculi. No hydronephrosis or hydroureter. Cholelithiasis is noted. Urinary bladder is normal. No abnormal lymphadenopathy. Please see full dictation for additional
detail. Film personally viewed
04/07/2024 Renal ultrasound:Essentially unremarkable renal ultrasound, as detailed in body of dictation.
[2024-04-11 14:45] VITALS: BP 134/72
--- NOTE | 2024-04-11 15:29 | W.DCSUMMARY ---
Discharge Summary
Discharge Data
Date of Admission: 04/07/24
Date of Discharge: 04/11/24
-
Pending Results: No
Hospital Course
84 years old male presented with ongoing urinary frequency in last a few days. His urine was cloudy with leukocytosis. Patient was diagnosed with complicated urine tract infection. Renal US and CT showed no evidence of collection, hydronephrosis
or calculi. Patient had fevers and possible adult urinary retention. Babin catheter was placed. Urologist was consulted and recommended to continue treating the infection. Patient was evaluated by infectious disease storage management consultant. Blood culture
did not show any growth. Urine culture showed staphylococcus lugdunensis. Patient was given IV antibiotic and later changed to oral antibiotic upon discharge. Urologist recommended to keep off Babin catheter as patient was able to pass urine post
Babin catheter although post residual volume remained around 200 cc. Finasteride was added to his regimen. Urologist recommended outpatient follow-up. Patient remained hemodynamically stable. Blood glucose was noted to be low while patient not
carbohydrate controlled diet. Patient was advised to monitor his blood glucose and reduce dose of glimepiride, follow-up with his a primary care doctor if hypoglycemia detected. Patient was evaluated by physical therapy and was discharged home in
a stable condition.
Discharge Plan
-
Patient Disposition: Home with Home Care
Discharge Diagnosis/Procedures: Complicated UTI, you are seen by infectious diseases doctor. You received IV antibiotic. Blood culture did not show any growth.
urinary retention : You are seen by urologist
Diabetes, you had low blood sugar, we gave you 1 mg dose of glimepiride twice a day in hospital. Monitor your blood glucose at home, if blood glucose lower than 90 at home, hold you oral glimepiride and call you family doctor.
Diet: As tolerated and Diabetic, Carb Controlled
Referrals:
Lam Vaughn MD [Active] - (call Dr VAUGHN [phone] set up appt bph uti for 2= 4 weeks sooner if sxs of uti)
Greg Escobar MD [Family Provider] - in one to two weeks
Prescriptions:
New
tamsulosin 0.4 mg Capsule
0.4 mg PO DAILY Qty: 30 0RF
finasteride 5 mg tablet
5 mg PO DAILY Qty: 30 0RF
cephalexin 500 mg capsule
500 mg PO QID Qty: 24 0RF
Continued
lisinopril 20 mg Tablet
20 mg PO QPM
simvastatin [Zocor] 10 mg Tablet
10 mg PO HS
amlodipine [Norvasc] 5 mg Tablet
5 mg PO DAILY
omeprazole 40 mg Capsule,Delayed Release(Dr/Ec)
40 mg PO DAILY
glimepiride 2 mg Tablet
2 mg PO BID
hydrochlorothiazide 25 mg Tablet
25 mg PO DAILY
PreserVision AREDS 2,148 mcg-113 mg-45 mg-17.4mg Tablet
1 tab PO BID
aspirin 81 mg Tablet,Delayed Release (Dr/Ec)
81 mg PO DAILY
latanoprost 0.005 % Drops
1 drp BOTH EYES HS
Discontinued
ibuprofen [Motrin] 400 mg Tablet
400 mg PO DAILYPRN PRN (Reason: mild pain)
Discharge Orders:
Discharge Patient (As Directed); Ordered 04/11/24
Ordered By: David Ricardo
Discharge Date and Time
Discharge Date/Time: 04/11/24 15:08
Print Language: YORUBA
== END 2024-04-11 15:08 | disposition home or self-care (01) | DRG 872 ==
LOC: 3 WEST ACU 09:58
PROVIDERS: Nurse Practitioner Family; Student in an Organized Health Care Education/Training Program; ADMITTING PHYSICIAN Internal Medicine; CONSULT PHYSICIAN Specialist; EMERGENCY PHYSICIAN Emergency Medicine; FAMILY PHYSICIAN Family Medicine; OTHER PHYSICIAN Internal Medicine Infectious Disease
DX: A41.9 Sepsis, unspecified organism (principal); N39.0 Urinary tract infection, site not specified; E11.9 Type 2 diabetes mellitus without complications; Z79.84 Long term (current) use of oral hypoglycemic drugs; W19.XXXA Unspecified fall, initial encounter; Y92.009 Unspecified place in unspecified non-institutional (private) residence as the place of occurrence of the external cause; I10 Essential (primary) hypertension; K21.9 Gastro-esophageal reflux disease without esophagitis; N40.0 Benign prostatic hyperplasia without lower urinary tract symptoms; E78.00 Pure hypercholesterolemia, unspecified; Z87.440 Personal history of urinary (tract) infections; Z79.82 Long term (current) use of aspirin
CPT/HCPCS: 51798; 70450; 73030; 74176; 76775; 80048; 80202; 81003; 81015; 82962; 83036; 85025; 85027; 87040; 87086; 87147; 87186; 96374; 97116; 97162; 97166; 97530; 97535; 99285

== ENCOUNTER 2025-03-03 19:48 | Emergency (ER) | payer MEDICARE, SELFPAY ==
[2025-03-03 19:51] VITALS: BP 138/75
[2025-03-03 23:20] VITALS: BP 146/63
--- NOTE | 2025-03-04 00:58 | ED.GENMED ---
History of Present Illness
General
Chief Complaint: Skin Problem
Source: patient and other
Exam Limitations: none
Time Seen by Provider: 03/04/25 00:45
Nursing documentation reviewed up to this point in time: agreed with
History of Present Illness
History of Present Illness:
Note:
CHIEF COMPLAINT(S)
Swelling on the arm.
HISTORY OF PRESENT ILLNESS
The patient is an 84-year-old male who presented with swelling on the arm. The swelling appeared suddenly and had been present for approximately five hours before the visit. The patient reported that the swelling initially appeared quickly, within
about 20 minutes, and was initially the size of a baseball before being reduced by ice application. The area became darker, suggestive of a hematoma, but not associated with trauma or specific injury. The patient mentioned the area was prickly,
which prompted him to notice it. The patient also expressed concern that the swelling might be a result of wearing a long-sleeved shirt that could have caused minor trauma triggering the hematoma. He is currently taking aspirin, which may have
contributed to easier bruising. The patient denies any recent hospital visits but had a recent doctor�s visit for blood test results which showed a low red blood cell count. The hematoma is currently not painful.
PAST MEDICAL AND SURGICAL HISTORY
Patient has been on blood thinners, specifically aspirin, for 20 to 30 years due to a past episode where he passed out, but without a history of stroke or cardiac problems. No history of stents or other cardiac interventions.
PHYSICAL EXAM
General: Alert, no acute distress.
Skin: Warm, dry, with observed hematoma on the arm.
Head: Normocephalic, atraumatic.
Neck: Supple, trachea midline.
Eye, Ears, Nose, Mouth, and Throat: Oral mucosa moist.
Cardiovascular: Normal peripheral perfusion, No edema.
Respiratory: Respirations are non-labored.
Gastrointestinal: Abdomen nondistended.
Back: Normal range of motion, Normal alignment.
Musculoskeletal: Normal ROM, normal strength.
Neurological: Alert and oriented to person, place, time, and situation, No focal neurological deficit observed.
Psychiatric: Cooperative, appropriate mood & affect.
PLAN
The patient was advised to stop taking aspirin for three days to potentially reduce the risk of further bruising. Compression will be maintained on the affected arm, and the patient is advised to continue icing the area for 20-minute intervals using
a cloth barrier. No recommendation for drainage unless signs of infection develop. The patient is advised to follow up with their primary care doctor for further evaluation and reassurance.
DIFFERENTIAL DIAGNOSIS
The Differential Diagnosis includes, in no particular order and is not limited to:
1. Hematoma secondary to minor trauma.
2. Anticoagulation-related hematoma.
3. Hematoma due to spontaneous capillary rupture.
4. Thrombocytopenia due to aspirin use.
5. Anemia contributing to hematoma formation.
6. Soft tissue injury.
7. Subcutaneous hemorrhage.
8. Coagulopathy-related bleeding.
9. Vascular lesion.
10. Allergic reaction causing swelling.
Disposition:
SUMMARY OF ENCOUNTER
The patient, an 84-year-old male, was seen in the emergency department for sudden swelling on the arm diagnosed as a hematoma on the left forearm. The swelling improved after the application of an KIANA wrap. The patient was neurologically intact at
the time of discharge, and a normal x-ray confirmed no fractures.
DISPOSITION
Discharge.
ASSESSMENT
Hematoma on the left forearm.
PLAN
The patient was advised to stop taking aspirin for three days. Continue using compression on the affected arm and apply ice for 20-minute intervals with a cloth barrier. Follow up with the primary care doctor for further evaluation and reassurance.
PATIENT EDUCATION AND COUNSELING
The patient was informed about the diagnosis of hematoma and the importance of stopping aspirin temporarily to decrease the risk of further bruising. Instructions were given to continue compression and icing and to monitor for signs of infection.
FOLLOW-UP INSTRUCTIONS
Follow up with the primary care physician as needed.
MEDICATION RECONCILIATION
Patient was advised to stop taking aspirin for three days.
MEDICAL DECISION MAKING
-Complexity of Data Reviewed: Chronic conditions affecting care include anticoagulation with aspirin for more than 20 years. Differential diagnosis includes hematoma secondary to minor trauma, anticoagulation-related hematoma, spontaneous capillary
rupture, thrombocytopenia due to aspirin use, anemia contributing to hematoma formation, soft tissue injury, subcutaneous hemorrhage, coagulopathy-related bleeding, vascular lesion, and allergic reaction causing swelling.
-Data:
Category 1: My independent interpretation of the x-ray of the left forearm shows no fractures or abnormalities.
-Risk:
Consideration of Admission/Observation: Escalation of care including admission/observation was considered given the complexity and risk of the patients presenting complaint and underlying comorbidities. However, ultimately, the patient is deemed
safe for outpatient management with close follow-up. Reasoning: Work-up reassuring, does not reveal any acute life/organ-threatening processes, patients symptoms well controlled upon reevaluation, reexamination is reassuring, vitals are stable,
patient agreeable with discharge, reliable for follow-up.
DIAGNOSIS
Hematoma of left forearm (ICD-10: M79.81).
Past History
Past History
ED Past Medical History: GERD, HTN and Hypercholesterolemia
ED Past Surgical History: Other (Vein stripping. Hernia.)
Phy Exam
Physical Exam
Physical Exam:
.
Course
Orders/Labs/Results
Orders:
Orders
03/03/25 19:55
Forearm, Left 2 View [CR Forearm - Left 2 View] Urgent
Comment:
Reason For Exam: hematoma, swelling
Vital Signs
Initial and Last Documented VS:
Initial Vital Signs
Temp Pulse Resp BP Pulse Ox
98.5 F 86 18 138/75 99
03/03/25 19:51 03/03/25 19:51 03/03/25 19:51 03/03/25 19:51 03/03/25 19:51
Last Documented Vital Signs
Temp Pulse Resp BP Pulse Ox
98.5 F 69 18 146/63 97
03/03/25 19:51 03/03/25 23:20 03/03/25 23:20 03/03/25 23:20 03/04/25 00:59
*Pulse Oximetry
SaO2: 97
Oxygen Mode of Delivery: Room air
Patient hypoxic: no
*Critical Care Note
Total Time (30-74mins, 75-104mins- exclusive of procedures): Not Applicable
ED Attending Note
-
Portions of this chart may have been created with voice recognition software.� Occasional wrong word or��sound alike� substitutions may have occurred due to the inherent limitations of voice recognition software.
Discharge Plan
Departure
Patient Disposition: Home (Routine Discharge)
Date of Disposition: 03/04/25
Time of Disposition: 01:02
Patient with high blood pressure during this ER visit?: Yes
Condition: Good
Discharge Problem:
Hematoma of left forearm
Instructions: BLOOD PRESSURE, Hematoma
Prescriptions:
No Action
lisinopril 20 mg Tablet
20 mg PO QPM
simvastatin [Zocor] 10 mg Tablet
10 mg PO HS
amlodipine [Norvasc] 5 mg Tablet
5 mg PO DAILY
omeprazole 40 mg Capsule,Delayed Release(Dr/Ec)
40 mg PO DAILY
glimepiride 2 mg Tablet
2 mg PO BID
hydrochlorothiazide 25 mg Tablet
25 mg PO DAILY
PreserVision AREDS 2,148 mcg-113 mg-45 mg-17.4mg Tablet
1 tab PO BID
aspirin 81 mg Tablet,Delayed Release (Dr/Ec)
81 mg PO DAILY
latanoprost 0.005 % Drops
1 drp BOTH EYES HS
tamsulosin 0.4 mg Capsule
0.4 mg PO DAILY Qty: 30 0RF
finasteride 5 mg tablet
5 mg PO DAILY Qty: 30 0RF
cephalexin 500 mg capsule
500 mg PO QID Qty: 24 0RF
Referrals:
Greg Escobar MD [Family Provider, Family Practice] - Call in 1-3 days for appt
Interventions
Interventions:
*Risk Screen - Suicide Last Done: 03/03/25 19:51
*General Assessment Last Done: 03/03/25 19:51
*Neglect/Abuse Screening Last Done: 03/04/25 01:03
*ED- Fall Risk Assessment Last Done: 03/04/25 01:03
*ED COVID-19 Vaccine History Last Done: 03/04/25 01:03
*ED Influenza Vaccine History Last Done: 03/04/25 01:03
*Nursing Disposition Last Done: 03/04/25 01:04
ED-Skin Assessment Last Done: 03/03/25 22:55
Discharge Date and Time
Discharge Date/Time: 03/04/25 01:04
Print Language: [place]UADORE[place]
== END 2025-03-04 01:04 | disposition home or self-care (01) ==
LOC: EMR 19:48
PROVIDERS: EMERGENCY PHYSICIAN Emergency Medicine; FAMILY PHYSICIAN Family Medicine
DX: S50.12XA Contusion of left forearm, initial encounter (principal); X58.XXXA Exposure to other specified factors, initial encounter; I10 Essential (primary) hypertension; E78.00 Pure hypercholesterolemia, unspecified; K21.9 Gastro-esophageal reflux disease without esophagitis; Z79.82 Long term (current) use of aspirin
CPT/HCPCS: 99283; 73090